=== PATIENT | male | born 1960 | race American Indian/Alaskan Native ===

== ENCOUNTER 2021-08-19 12:05 | Emergency (ER) | payer MEDICARE ==
[2021-08-19] MEDS ORDERED: HYDROcodone/ACETAMINOPHEN 5-325 MG TAB PO ONE (14:04)
[2021-08-19] MEDS ORDERED: ONDANSETRON 4 MG ODT TAB PO ONE (14:05)
--- NOTE | 2021-08-19 14:43 | XRay Report ---
XR humerus 2+V LT, XR shoulder 2+V LT INDICATION / CLINICAL INFORMATION: proximal pain and bruising after fall injury COMPARISON: None available. FINDINGS: There is an acute mildly comminuted oblique fracture involving the proximal left humerus, extending f rom the medial metadiaphysis cranially to involve the greater tuberosity. There is one quarter shaft width medial displacement of the dominant distal fracture fragment. No additional fracture. Left AC a nd glenohumeral joints are intact. Pseudosubluxation of the humeral head likely reflecting hematoma/h emarthrosis. IMPRESSION: Acute mildly comminuted left proximal humerus fracture, as above. Signer Name: Ramos Abbott MD Signed: 08/19/2021 2:39 PM Workstation Name: [id number]
--- NOTE | 2021-08-19 15:19 | Emergency Department Report ---
ED General Adult HPI - General Chief complaint: Shoulder Injury Stated complaint: FALL Time Seen by Provider: 08/19/21 13:35 Source: patient Mode of arrival: Ambulatory Limitations: No Limitations - History of Present Illness Initial comments: 61-year-old -[place] male patient presents with complaints of left shoulder and upper arm pain after a trip and fall injury 1 week ago. Patient states pain worsens to touch and with movement. He does admit to decreased range of motion of the arm since the injury, but denies any numbness/tingling or weakness in his arm or hand. Patient rates current pain is 8/10 in severity. He reports OTC medications are not helping. He also admits to bruising. He denies having any head injuries or loss of consciousness Severity scale (0 -10): 8 - Related Data Previous Rx's Medication Instructions Recorded Last Taken Type HYDROcodone/APAP 5-325 [[place] 1 each PO Q8HR PRN #15 tablet 08/19/21 Unknown Rx 5-325 mg TAB] Naproxen 500 mg PO BID PRN #20 tablet 08/19/21 Unknown Rx Ondansetron [Zofran Odt] 4 mg PO Q8HR PRN #15 tab.rapdis 08/19/21 Unknown Rx Allergies Allergy/AdvReac Type Severity Reaction Status Date / Time acetaminophen Allergy Nausea Verified 08/19/21 14:45 [From Tylenol-Codeine #3] codeine phosphate Allergy Nausea Unverified 07/12/14 17:33 [From Tylenol-Codeine #3] ED Review of Systems ROS: Stated complaint: FALL Other details as noted in HPI Constitutional: denies: fever, malaise Respiratory: denies: cough, shortness of breath Cardiovascular: denies: chest pain Musculoskeletal: arthralgia Neurological: denies: numbness, paresthesias ED Past Medical Hx - Medications Home Medications: Home Medications Medication Instructions Recorded Confirmed Last Taken Type HYDROcodone/APAP 5-325 [[place] 1 each PO Q8HR PRN #15 tablet 08/19/21 Unknown Rx 5-325 mg TAB] Naproxen 500 mg PO BID PRN #20 tablet 08/19/21 Unknown Rx Ondansetron [Zofran Odt] 4 mg PO Q8HR PRN #15 tab.rapdis 08/19/21 Unknown Rx ED Physical Exam - General Limitations: No Limitations General appearance: alert, in no apparent distress - Head Head exam: Present: atraumatic, normocephalic - Eye Eye exam: Present: normal appearance - Respiratory Respiratory exam: Present: normal lung sounds bilaterally. Absent: respiratory distress - Cardiovascular Cardiovascular Exam: Present: regular rate, normal rhythm - Expanded Upper Extremity Exam Left Shoulder Exam: Present: tenderness (Tenderness to palpation noted to left hu meral head and upper proximal humerus with approximately 5 cm area of ecchymosis noted; no obvious deformities are noted). Absent: full ROM Elbow exam: Present: normal inspection Forearm Wrist exam: Present: normal inspection, full ROM Hand Wrist exam: Present: normal inspection, full ROM Vascular: Absent: pulse deficit radial art, pulse deficit ulnar art - Neurological Exam Neurological exam: Present: alert, oriented X3 - Psychiatric Psychiatric exam: Present: normal affect, normal mood - Skin Skin exam: Present: warm, dry, intact, normal color. Absent: rash ED Course Vital Signs 08/19/21 08/19/21 13:17 14:43 Temperature 97.8 F Pulse Rate 85 Respiratory 16 Rate Blood Pressure 132/87 [Right] O2 Sat by Pulse 100 100 Oximetry ED Medical Decision Making - Radiology Data Radiology results: report reviewed XR humerus 2+V LT, XR shoulder 2+V LT INDICATION / CLINICAL INFORMATION: proximal pain and bruising after fall injury COMPARISON: None available. FINDINGS: There is an acute mildly comminuted oblique fracture involving the proximal left humerus, extending from the medial metadiaphysis cranially to involve the greater tuberosity. There is one quarter shaft width medial displacement of the dominant distal fracture fragment. No additional fracture. Left AC and glenohumeral joints are intact. Pseudosubluxation of the humeral head likely reflecting hematoma/hemarthrosis. IMPRESSION: Acute mildly comminuted left proximal humerus fracture, as above. - Medical Decision Making 61-year-old -[place] male patient presents with complaints of left shoulder and upper arm pain after a trip and fall injury 1 week ago. Patient states pain worsens to touch and with movement. He does admit to decreased range of motion of the arm since the injury, but denies any numbness/tingling or weakness in his arm or hand. Patient rates current pain is 8/10 in severity. He reports OTC medications are not helping. He also admits to bruising. He den ies having any head injuries or loss of consciousness Comminuted fracture of the proximal humerus noted on x-ray. Discussed patient with Dr. Be recommends-shoulder immobilizer with outpatient follow-up. Findings discussed with patient. Patient to follow-up with orthopedics tomorrow morning. He is otherwise well-appearing, his vitals are within normal limits, he is stable for discharge home. Discussed in detail signs and symptoms that should prompt immediate return to the ED with patient who verbalizes understanding Critical care attestation.: If time is entered above; I have spent that time in minutes in the direct care of this critically ill patient, excluding procedure time. ED Disposition Clinical Impression: Left humeral fracture Disposition: HOME / SELF CARE / HOMELESS Is pt being admited?: No Does the pt Need Aspirin: No Condition: Stable Instructions: Humerus Fracture Treated With Immobilization, [id number], Humerus Fracture Treated With ORIF Prescriptions: Naproxen 500 mg PO BID PRN #20 tablet PRN Reason: pain HYDROcodone/APAP 5-325 [[place] 5-325 mg TAB] 1 each PO Q8HR PRN #15 tablet PRN Reason: Pain , Severe (7-10) Ondansetron [Zofran Odt] 4 mg PO Q8HR PRN #15 tab.rapdis PRN Reason: Nausea Referrals: [facility] [Provider Group] - 24 Hours MARK ZAPATA MD [Staff Physician] - 24 Hours
[2021-08-19 17:03] VITALS: BP 130/82
== END 2021-08-19 16:25 | disposition home or self-care (01) ==
LOC: ED 12:05
DX: S42.292A Other displaced fracture of upper end of left humerus, initial encounter for closed fracture (principal); W01.0XXA Fall on same level from slipping, tripping and stumbling without subsequent striking against object, initial encounter; Y93.89 Activity, other specified; Y92.89 Other specified places as the place of occurrence of the external cause; Y99.8 Other external cause status
CPT/HCPCS: 99283; J3490; Q0162

== ENCOUNTER 2021-09-03 12:28 | Outpatient (CLI) | payer MEDICARE ==
--- NOTE | 2021-09-03 13:47 | XRay Report ---
LEFT HUMERUS 2 VIEWS INDICATION / CLINICAL INFORMATION: Left arm pain. COMPARISON: 08/19/21. FINDINGS: BONES / JOINT(S): A comminuted fracture of the proximal humerus extending from the greater tuberosity distally into the proximal diaphysis is again identified. No significant change in alignment is seen . There is mild bony callus formation medially, new since the prior study. The distal humerus is inta ct. There are a couple of old healed left rib fractures. SOFT TISSUES: No significant abnormality. ADDITIONAL FINDINGS: None. Signer Name: Roddy Mims MD Signed: 09/03/2021 1:43 PM Workstation Name: [id number]
== END 2021-09-03 12:29 | disposition home or self-care (01) ==
LOC: XRAY 12:28
PROVIDERS: ATTEND Orthopaedic Surgery
DX: S42.202A Unspecified fracture of upper end of left humerus, initial encounter for closed fracture (principal); X58.XXXA Exposure to other specified factors, initial encounter; Y93.89 Activity, other specified; Y92.89 Other specified places as the place of occurrence of the external cause; Y99.8 Other external cause status

== ENCOUNTER 2021-10-03 10:56 | Outpatient (CLI) | payer MEDICARE ==
--- NOTE | 2021-10-03 12:55 | XRay Report ---
Left humerus 2 views INDICATION: Pain COMPARISON: 09/03/2001 FINDINGS: Comminuted fracture fluid within left humeral neck is seen. Further sclerosis along the fra cture line with some mild interval healing. Fracture lucency persists with mild displacement. Signer Name: Cornelius Jaimes MD Signed: 10/03/2021 12:50 PM Workstation Name: [id number]
== END 2021-10-03 10:57 | disposition home or self-care (01) ==
LOC: XRAY 10:56
PROVIDERS: ATTEND Orthopaedic Surgery
DX: S42.92XD Fracture of left shoulder girdle, part unspecified, subsequent encounter for fracture with routine healing (principal); X58.XXXD Exposure to other specified factors, subsequent encounter

== ENCOUNTER 2021-10-24 08:40 | Outpatient (CLI) | payer MEDICARE ==
--- NOTE | 2021-10-24 10:46 | XRay Report ---
LEFT HUMERUS 2 VIEWS INDICATION / CLINICAL INFORMATION: PAIN IN LEFT SHOULDER M25.512. COMPARISON: 10/03/21. FINDINGS: BONES / JOINT(S): The previously described mildly comminuted and displaced fracture of the proximal l eft humerus is again identified. Mild increase in bony callus formation is present. The fracture line s are still visible. No change in alignment has occurred. No new abnormality is seen. SOFT TISSUES: No significant abnormality. ADDITIONAL FINDINGS: None. Signer Name: Roddy Mims MD Signed: 10/24/2021 10:41 AM Workstation Name: [id number]
== END 2021-10-24 08:41 | disposition home or self-care (01) ==
LOC: XRAY 08:40
PROVIDERS: ATTEND Orthopaedic Surgery
DX: S42.292D Other displaced fracture of upper end of left humerus, subsequent encounter for fracture with routine healing (principal); X58.XXXD Exposure to other specified factors, subsequent encounter